=== PATIENT | male | born 1940 | race Caucasian/White ===

== ENCOUNTER 2016-12-24 15:40 | Outpatient (CLI) | payer MEDICARE, OTHER ==
--- NOTE | 2016-12-25 12:20 | XRAY Report ---
THREE-VIEW RIGHT KNEE: 12/24/2016 CLINICAL INDICATION: Chronic pain. FINDINGS: AP, lateral, sunrise views of the right knee are compared to previous films of 10/22/2012. Moderate osteoarthritis is present, worst in the patellofemoral compartment. There is no evidence of acute fracture or dislocation. No effusion is seen. IMPRESSION: MODERATE RIGHT KNEE OSTEOARTHRITIS. JOB #: [id number] EXT JOB #:[id number]
== END 2016-12-24 15:41 | disposition home or self-care (01) ==
LOC: DI 15:40
PROVIDERS: ATTEND Internal Medicine
DX: M17.11 Unilateral primary osteoarthritis, right knee (principal)

== ENCOUNTER 2017-01-28 15:05 | Outpatient (CLI) | payer MEDICARE, OTHER ==
--- NOTE | 2017-01-28 16:27 | MRI Report ---
EXAM: RIGHT KNEE MRI WITHOUT CONTRAST EXAM DATE: 01/28/2017 03:56 PM. CLINICAL HISTORY: Progressive pain and loss of function right knee. COMPARISON: None. TECHNIQUE: Multiplanar, multisequence T1-weighted and fluid-sensitive sequences of the knee without c ontrast. Other: None. FINDINGS: The patient was unable to fit in the knee coil due to body habitus. Image quality is degraded. Bones: There is tricompartmental osteophyte formation. Articular Cartilage: There is severe thinning of the hyaline cartilage of the patellofemoral joint. T here is moderate thinning of the medial compartment. Mild lateral compartment cartilage thinning. Medial Meniscus: Motion artifact degrades image quality. There is a horizontal tear through the poste rior horn. Lateral Meniscus: The lateral meniscus is intact. Cruciate Ligaments: The anterior and posterior cruciate ligaments are intact. Collateral Ligaments: The medial collateral and lateral collateral ligamentous structures are intact. Tendons: The quadriceps, patellar, semimembranosus, and popliteus tendons are unremarkable. Musculature: No edema or fatty atrophy. Other: There is a small joint effusion. There is a medial periarticular cyst measuring approximately 15 x 6 x 6 mm, medial to the proximal attachment of the medial collateral ligament. No popliteal cyst . No loose bodies. The medial and lateral retinacula are intact. There is fluid in the prepatellar b ursa which may indicate prepatellar bursitis. IMPRESSION: 1. Moderate to severe patellofemoral osteoarthritis. [id number] osteoarthritis of the medial an d lateral compartments. 2. Small joint effusion. Medial periarticular cyst. 3. Image quality is degraded by the patient's body habitus and motion artifact. 4. Possible prepatellar bursitis. [facility] MUSCULOSKELETAL RADIOLOGY SECTION Referring Provider Line: [phone] SITE ID: [id number]
== END 2017-01-28 15:06 | disposition home or self-care (01) ==
LOC: DI 15:05
PROVIDERS: ATTEND Internal Medicine
DX: M17.11 Unilateral primary osteoarthritis, right knee (principal); M25.461 Effusion, right knee

== ENCOUNTER 2018-11-11 15:49 | Emergency (ER) | payer MEDICARE, OTHER ==
--- NOTE | 2018-11-11 16:18 | ED Physician Documentation ---
History of Present Illness - Stated complaint Stated Complaint: L LEG SWELLING/BLISTERS - Chief complaint Chief Complaint: General - History obtained from History obtained from: Patient - History of Present Illness Timing: Other (3 weeks of BLE swelling L>R. Has H/O CHF on lasix 20mg daily. No fevers. +PETERSON, but not at rest.) Review of Systems Ten Systems: 10 systems reviewed and negative Constitutional: denies: Fever, Chills Cardiac: denies: Chest pain / pressure, Palpitations Respiratory: denies: Dyspnea, Cough PD PAST MEDICAL HISTORY - Past Medical History Cardiovascular: Hypertension, High cholesterol, Murmur Respiratory: CPAP use Endocrine/Autoimmune: None GI: None : None HEENT: None Psych: None Musculoskeletal: None Derm: None - Past Surgical History Past Surgical History: Yes General: Appendectomy - Present Medications Home Medications: Ambulatory Orders Medication Instructions Recorded Confirmed Atenolol 25 mg PO DAILY 09/09/12 11/26/14 Lisinopril 20 mg PO BID 09/09/12 11/26/14 Simvastatin [Zocor] 20 mg PO HS 09/09/12 11/26/14 Aspirin [Cuauhtemoc] 325 mg PO ONCE 09/10/12 11/26/14 Ibuprofen [Motrin] 600 mg PO Q6H PRN #30 tab 10/22/12 11/26/14 Cephalexin [Keflex] 500 mg PO QID 7 Days capsule 11/26/14 - Allergies Allergies/Adverse Reactions: Allergies Allergy/AdvReac Type Severity Reaction Status Date / Time codeine [Codeine] AdvReac Nausea Verified 11/11/18 15:57 - Social History Does the pt smoke?: No Smoking Status: Never smoker Does the pt drink ETOH?: Yes Does the pt have substance abuse?: No - Immunizations Immunizations are current?: Yes - POLST Patient has POLST: No PD ED PE NORMAL - Vitals Vital signs reviewed: Yes - General General: Alert and oriented X 3, No acute distress - HEENT HEENT: PERRL, EOMI - Neck Neck: Supple, no meningeal sign, No bony TTP - Cardiac Cardiac: RRR, No murmur - Respiratory Respiratory: No respiratory distress, Clear bilaterally - Abdomen Abdomen: Non tender - Extremities Extremities: Other (BLE swelling with clear bullae on LLE no cellulitis.) - Neuro Neuro: Alert and oriented X 3, Normal speech Results - Vitals Vitals: Vital Signs - 24 hr 11/11/18 15:52 Temperature 36.3 C L Heart Rate 95 Respiratory 19 Rate Blood Pressure 134/94 H O2 Saturation 95 Oxygen O2 Source Room air - Labs Labs: Laboratory Tests 11/11/18 16:32 Sodium 142 Potassium 4.2 Chloride 104 Carbon Dioxide 27 Anion Gap 11.0 BUN 16 Creatinine 0.8 Estimated GFR (MDRD) 94 Glucose 104 H Calcium 9.1 - Rads (name of study) BLE DVT sono Radiology: Prelim report reviewed (neg for DVT) PD MEDICAL DECISION MAKING - ED course ED course: 78-year-old gentleman with history of heart failure presents with asymmetric pedal edema. Examination most consistent with CHF, DVT is less likely and ruled out by ultrasound. We will increase his Lasix pending follow-up. BMP normal with normal potassium at this juncture. Departure - Departure Disposition: 01 Home, Self Care Clinical Impression: CHF (congestive heart failure) Condition: Good Record reviewed to determine appropriate education?: Yes Instructions: ED CHF General Comments: Increase your Lasix to 40 mg once a day, twice her current dose. Follow-up with your doctor in 2 to 3 days for recheck. As discussed I recommend weighing herself daily and tracking this to aid in tracking of your fluid status. Return for new or worsening symptoms.
[2018-11-11 16:44] LABS: CALCIUM 9.1 mg/dL (8.5-10.3); CREATININE 0.8 mg/dL (0.6-1.2)
[2018-11-11 18:10] VITALS: BP 156/112
--- NOTE | 2018-11-11 18:15 | Ultrasound Report ---
Reason: LE edema Procedure Date: 11/11/2018 Accession Number: [id number] / [id number] Procedure: US - Duplex Ext Veins Bilateral CPT Code: FULL RESULT: EXAM: BILATERAL LOWER EXTREMITY VENOUS ULTRASOUND EXAM DATE: 11/11/2018 05:43 PM. CLINICAL HISTORY: Bilateral lower extremity edema. On blood thinners. COMPARISON: None. TECHNIQUE: Real-time sonographic vascular imaging was performed by the staff educator through the lower extremities utilizing both color-flow and Doppler spectral analysis. Multiple employee's representative static images were saved for review. FINDINGS: Right: Common Femoral Vein (CFV): Normal. CFV-GSV Junction: Normal. Profunda Femoral Vein (PFV): Normal. Femoral Vein (FV) Prox: Normal. Femoral Vein (FV) Mid: Normal. Femoral Vein (FV) Dist: Normal. Limited visualization. Popliteal Vein: Normal. Posterior Tibial Veins: Normal. Limited visualization. Peroneal Veins: Not seen. Left: Common Femoral Vein (CFV): Normal. CFV-GSV Junction: Normal. Profunda Femoral Vein (PFV): Normal. Femoral Vein (FV) Prox: Normal. Femoral Vein (FV) Mid: Normal. Femoral Vein (FV) Dist: Normal. Limited visualization. Popliteal Vein: Normal. Posterior Tibial Veins: Normal. Limited visualization. Peroneal Veins: Not seen. Other: Calf veins are not well seen. Suboptimal visualization due to patient's body habitus. Large legs. IMPRESSION: No evidence for deep venous thrombosis bilaterally. Limited visualization. See above. [facility]
== END 2018-11-11 18:11 | disposition home or self-care (01) ==
LOC: ED 15:49
DX: I11.0 Hypertensive heart disease with heart failure (principal); I50.9 Heart failure, unspecified; Z79.82 Long term (current) use of aspirin
CPT/HCPCS: 36415; 80048; 93970; 99283; 99284

== ENCOUNTER 2018-11-20 14:46 | Outpatient (CLI) | payer MEDICARE, OTHER ==
[2018-11-20 15:31] LABS: ALBUMIN 3.6 g/dL (3.2-5.5); CALCIUM 9.5 mg/dL (8.5-10.3); CREATININE 1.1 mg/dL (0.6-1.2); PHOSPHORUS 4.8 mg/dL (2.5-4.6)
== END 2018-11-20 14:47 | disposition home or self-care (01) ==
LOC: LAB 14:46
PROVIDERS: ATTEND Internal Medicine
DX: I50.9 Heart failure, unspecified (principal)
CPT/HCPCS: 36415; 80069